=== PATIENT | female | born 1995 | race Caucasian/White ===

== ENCOUNTER 2020-08-18 11:43 | Emergency (ER) | payer OTHER ==
[~2020-08-18] VITALS: Ht 152.4 cm; Wt 89.4 kg
[~2020-08-18 11:43] MED LIST: CELEXA20 MG
== END 2020-08-18 14:33 | disposition home or self-care (01) ==
LOC: ER 11:43
DX: B34.9 Viral infection, unspecified (principal)

== ENCOUNTER 2021-07-10 08:00 | Outpatient (CLI) | payer OTHER | END 2021-07-10 08:30 | disposition home or self-care (01) | LOC: PPH VACUNA 08:00 | PROVIDERS: ATTEND Emergency Medicine Pediatric Emergency Medicine | DX: Z23 Encounter for immunization (principal) ==

== ENCOUNTER 2021-08-19 13:47 | Emergency (ER) | payer OTHER ==
[~2021-08-19] VITALS: Ht 165.1 cm; Wt 90.7 kg
== END 2021-08-19 20:22 | disposition home or self-care (01) ==
LOC: ER 13:47
DX: K52.89 Other specified noninfective gastroenteritis and colitis (principal); B34.8 Other viral infections of unspecified site; R10.9 Unspecified abdominal pain; K52.9 Noninfective gastroenteritis and colitis, unspecified

== ENCOUNTER 2021-09-20 08:47 | Day surgery (SDC) | payer OTHER ==
[~2021-09-20 08:47] MED LIST changes: +CONCERTA36 MG PO
[2021-09-20] MEDS ORDERED: Tylenol #3 PO (12:30)
[2021-09-20] MEDS ORDERED: NAPR500T14 PO (12:30)
== END 2021-09-20 15:10 | disposition home or self-care (01) ==
LOC: CIR.AMB 08:47
PROVIDERS: ATTEND Obstetrics & Gynecology
DX: D27.0 Benign neoplasm of right ovary (principal); Z86.16 Personal history of COVID-19; F17.210 Nicotine dependence, cigarettes, uncomplicated; Z71.6 Tobacco abuse counseling; F12.90 Cannabis use, unspecified, uncomplicated; K76.0 Fatty (change of) liver, not elsewhere classified